=== PATIENT | male | born 1995 | race Caucasian/White ===

== ENCOUNTER 2023-12-08 17:55 | Outpatient (CLI) | payer BC, SELFPAY ==
[2023-12-08 19:11] LABS: Lab Add On Test New Spec Needed
== END 2023-12-08 17:56 | disposition home or self-care (01) ==
PROVIDERS: PCP Family Medicine; Visit Provider Family Medicine
DX: D64.9 Anemia, unspecified (principal); I10 Essential (primary) hypertension; Z13.220 Encounter for screening for lipoid disorders; Z13.29 Encounter for screening for other suspected endocrine disorder
CPT/HCPCS: 80061; 80076; 82043; 82570; 84443

== ENCOUNTER 2024-01-05 16:52 | Outpatient (CLI) | payer BC, SELFPAY | END 2024-01-05 16:53 | disposition home or self-care (01) | PROVIDERS: PCP Family Medicine; Visit Provider Family Medicine | DX: D64.9 Anemia, unspecified (principal); I10 Essential (primary) hypertension; R60.9 Edema, unspecified | CPT/HCPCS: 82306; 82728; 83540 ==

== ENCOUNTER 2024-01-15 13:44 | Outpatient (CLI) | payer BC, SELFPAY ==
--- NOTE | 2024-01-15 | CRLHL7_ITS ---
For Patients: As a result of the Century Cures Act, medical imaging exams and procedure reports are released immediately into your electronic medical record. You may view this report before your referring provider. If you have questions, please contact your health care provider. INDICATION: Bilateral lower extremity swelling TECHNIQUE: Ultrasound venous duplex lower extremity bilateral. Compression venous exam was performed using campos-scale, color Doppler, and spectral Doppler imaging. COMPARISON: None. FINDINGS: Sonographic imaging demonstrates the common femoral, deep femoral, superficial femoral, popliteal, and greater saphenous veins to be fully compressible with normal color Doppler blood flow in both lower extremities. Mild subcutaneous edema within the calves without focal fluid collection. IMPRESSION: Normal bilateral lower extremity venous ultrasound, no sign of deep venous thrombosis. Dictated by Chris Zuniga MD @ 01/15/2024 3:44:32 PM (Electronically Signed)
== END 2024-01-15 13:45 | disposition home or self-care (01) ==
LOC: RAD 13:44
PROVIDERS: PCP Family Medicine; Visit Provider Family Medicine
DX: R60.9 Edema, unspecified (principal); R22.43 Localized swelling, mass and lump, lower limb, bilateral
CPT/HCPCS: 93306; 93970

== ENCOUNTER 2024-02-09 17:23 | Outpatient (CLI) | payer BC, SELFPAY | END 2024-02-09 17:24 | disposition home or self-care (01) | LOC: LKVREF 17:26 | PROVIDERS: PCP Family Medicine; Visit Provider Family Medicine | DX: I89.0 Lymphedema, not elsewhere classified (principal); D64.9 Anemia, unspecified; R60.9 Edema, unspecified; I10 Essential (primary) hypertension | CPT/HCPCS: 86682 ==

== ENCOUNTER 2024-02-17 15:25 | Outpatient (CLI) | payer BC, SELFPAY ==
--- NOTE | 2024-02-17 16:00 | CRLHL7_ITS ---
For Patients: As a result of the Century Cures Act, medical imaging exams and procedure reports are released immediately into your electronic medical record. You may view this report before your referring provider. If you have questions, please contact your health care provider. INDICATION: Lymphedema. TECHNIQUE: CT abdomen and pelvis acquired with 150 cc Omnipaque 370 IV contrast. COMPARISON: None. FINDINGS: Lower chest: Unremarkable. Liver: Unremarkable. Normal in size and attenuation. No suspicious masses. Gallbladder and bile ducts: Unremarkable. No stones or inflammation. No biliary dilatation. Pancreas: Unremarkable. No mass or inflammation. Spleen: Mild splenomegaly (15 centimeters AP dimension). Adrenal glands: Unremarkable. No nodules. Kidneys: Unremarkable. No suspicious masses, stones, or hydronephrosis. GI tract: No bowel obstruction or focal inflammation. Vasculature: Abdominal aorta is normal in caliber. Mesenteric arteries are patent. Lymph nodes: Abdominal retroperitoneal, pelvic and bilateral inguinal lymphadenopathy. A right inguinal lymph node measures 2.1 x 3.7 centimeters (series 2, image 163), a left inguinal lymph node measures 2.0 by 3.4 centimeters (series 2, image 175), bilateral pelvic sidewall lymph nodes measure up to 1.6 centimeters on the right and 1.4 centimeters on the left. Para-aortic lymph nodes measure up to 12 millimeter short axis (series 2, image 75). Peritoneum/Abdominal Wall: No free fluid or free intraperitoneal air. Pelvis: Unremarkable. Bones: No suspicious osseous lesion IMPRESSION: Abdominal retroperitoneal, pelvic and bilateral inguinal lymphadenopathy. Mild splenomegaly. Please note that all CT scans at this facility use dose modulation, iterative reconstruction, and/or weight-based dosing when appropriate to reduce radiation dose to as low as reasonably achievable. Dictated by Rasta Carrasco MD @ 02/18/2024 9:39:40 AM (Electronically Signed)
== END 2024-02-17 15:26 | disposition home or self-care (01) ==
LOC: CT 15:26
PROVIDERS: PCP Family Medicine; Visit Provider Family Medicine
DX: I89.0 Lymphedema, not elsewhere classified (principal); D72.829 Elevated white blood cell count, unspecified; R16.1 Splenomegaly, not elsewhere classified
CPT/HCPCS: 74177; Q9967

== ENCOUNTER 2024-03-01 15:25 | Outpatient (CLI) | payer BC, SELFPAY | END 2024-03-01 15:26 | disposition home or self-care (01) | LOC: NFLDREF 03-02 09:58 | PROVIDERS: PCP Family Medicine; Referring Provider Family Medicine; Visit Provider Internal Medicine Hematology & Oncology | DX: R71.8 Other abnormality of red blood cells (principal); D72.829 Elevated white blood cell count, unspecified; D64.9 Anemia, unspecified; R77.9 Abnormality of plasma protein, unspecified | CPT/HCPCS: 84155; 84165 ==

== ENCOUNTER 2024-03-30 07:58 | Outpatient (CLI) | payer BC, SELFPAY ==
--- NOTE | 2024-03-30 08:15 | CRLHL7_ITS ---
For Patients: As a result of the Century Cures Act, medical imaging exams and procedure reports are released immediately into your electronic medical record. You may view this report before your referring provider. If you have questions, please contact your health care provider. ULTRASOUND-GUIDED LEFT INGUINAL LYMPH NODE BIOPSY CLINICAL HISTORY: Inguinal adenopathy COMPARISON STUDIES: CT 02/17/2024 TECHNIQUE: Real-time ultrasound with image documentation was used for targeting the left inguinal lymph node lesion. Core biopsy specimens were obtained using an automated gun with a 14-gauge biopsy needle. CONSENT and TIME OUT: The procedure, risks, and alternatives were explained to the patient and a consent was signed. [place] Protocol was followed including pre-procedure verification that relevant information/documentation was available, reviewed and properly matched to the patient; consent accurate and complete; and equipment and supplies available. Time Out was conducted just prior to starting procedure to verify the four required elements: patient identity, correct side/site marked (if applicable), procedure, relevant images/results properly labeled and displayed (if applicable). PROCEDURE: The patient was positioned supine on the ultrasound table. The left inguinal region was prepped with ChloraPrep. 8 cc of 1 percent lidocaine used for local anesthesia. Core samples were obtained. The specimens were placed in 10% formalin and sent to the pathology department. Pressure was held on the biopsy site until all bleeding subsided. The skin incision was closed with Steri-Strips. An ice pack was positioned over the biopsy site. Post-biopsy instructions were reviewed with the patient, and a written copy was given to him. LATERALITY: Left inguinal region LESION: Enlarged hypoechoic left inguinal lymph node measuring 2.8 cm SUSPICION FOR MALIGNANCY: Reactive versus lymphoma NUMBER OF SAMPLES: 5 IMPRESSION: Ultrasound-guided left inguinal lymph node biopsy. Dictated by Pastor Hawley MD @ 03/30/2024 12:41:44 PM (Electronically Signed)
== END 2024-03-30 07:59 | disposition home or self-care (01) ==
LOC: US 07:59
PROVIDERS: PCP Family Medicine; Visit Provider Family Medicine
DX: R59.1 Generalized enlarged lymph nodes (principal); D64.9 Anemia, unspecified; D72.829 Elevated white blood cell count, unspecified
CPT/HCPCS: 38505; 76942; 88305; 88341; 88342; 88360; 88365; A4649

== ENCOUNTER 2024-04-15 16:53 | Outpatient (CLI) | payer BC, SELFPAY ==
[2024-04-15 19:43] LABS: Lab Add On Test New Spec Needed
== END 2024-04-15 16:54 | disposition home or self-care (01) ==
PROVIDERS: PCP Family Medicine; Visit Provider Family Medicine
DX: D64.9 Anemia, unspecified (principal); D72.829 Elevated white blood cell count, unspecified; E53.8 Deficiency of other specified B group vitamins; R59.1 Generalized enlarged lymph nodes; R77.9 Abnormality of plasma protein, unspecified
CPT/HCPCS: 80053; 82607; 82728; 83540

== ENCOUNTER 2024-06-14 15:55 | Outpatient (CLI) | payer BC, SELFPAY | END 2024-06-14 15:56 | disposition home or self-care (01) | LOC: CT 15:55 | PROVIDERS: PCP Family Medicine; Visit Provider Internal Medicine Hematology & Oncology | DX: R59.1 Generalized enlarged lymph nodes (principal) | CPT/HCPCS: 71260; 74177; Q9967 ==

== ENCOUNTER 2024-08-02 14:00 | Outpatient (RCR) | payer BC, SELFPAY ==
[2024-02-24 14:42] LABS: Basophils Percent Auto 0.2 % (0.0-3.0); Eosinophils Percent Auto 1.5 % (0.0-7.0); Hematocrit 34.9 % (37.0-53.0); Hemoglobin* 10.3 gm/dL (13.5-17.5); Immature Granulocytes Pct Auto 0.6 %; Immature Reticulocyte Fraction 26.7 % (2.3-13.4); Lymphocytes Percent Auto 9.5 % (20-44); Mean Corpuscular HGB Conc 30 gm/dL (32-36); Mean Corpuscular Hemoglobin 20 pg (26-34); Mean Corpuscular Volume 69 fL (80-100); Monocytes Percent Auto 8.2 % (0.0-11.0); Platelet Count* 524 K/uL (140-440); RDW Coefficient of Variation % 18.9 % (11.5-15.5); Red Blood Count 5.07 m/uL (4.30-5.90); Reticulocyte Hemoglobin Equivi 18.5 pg (29.0-35.0); Reticulocyte Percent 1.3 % (0.5-2.0); Reticulocytes Absolute 0.07 # (0.03-0.08); White Blood Count* 18.38 K/uL (4.50-11.00)
[2024-02-24 14:46] LABS: Albumin* 4.2 g/dL (3.3-5.0)
[2024-02-24 14:47] LABS: Chloride* 94 mmol/L (96-114); Potassium* 3.7 mmol/L (3.6-5.1); Sodium* 134 mmol/L (135-149)
[2024-02-24 14:49] LABS: Anion Gap 8 mEq/L (7-15); Aspartate Amino Transferase* 64 U/L (12-35); Bilirubin Total* 0.4 mg/dL (0.1-1.5); Carbon Dioxide* 32 mmol/L (20-32); Creatinine* 0.9 mg/dL (0.5-1.5); Est. Creatinine Clearance* 136.87; Estimated Glomerular Filt Rate 119 ml/min; Slide Review Reflex No
[2024-02-24 14:50] LABS: Alanine Aminotransferase* 15 U/L (4-50); Alkaline Phosphatase* 85 U/L (40-150); Blood Urea Nitrogen* 11 mg/dL (5-24); Calcium* 9.1 mg/dL (8.4-10.6); Glucose* 97 mg/dL (60-115); Lactate Dehydrogenase* 174 U/L (120-246); Total Protein* 9.4 g/dL (6.0-8.3)
[2024-02-24 15:12] LABS: Iron* 31 ug/dL (49-181)
[2024-02-24 15:22] LABS: Percent Iron Saturation 10 % (20-50); Total Iron Binding Capacity 322 ug/dL (261-462)
[2024-02-24 15:23] LABS: Ferritin* 94.1 ng/mL (17.9-464.0)
[2024-02-24 15:38] LABS: Vitamin B12* 245 pg/mL (243-894)
[2024-02-27 00:18] LABS: Copper, Serum/Plasma 160.2 ug/dL (70.0-140.0)
[2024-02-27 12:37] LABS: Folate, Serum >22.3 ng/mL (>=5.9)
[2024-02-27 22:17] LABS: Albumin 3.24 g/dL (3.75-5.01); Alpha 1 Globulin 0.59 g/dL (0.19-0.46); Alpha 2 Globulin 1.13 g/dL (0.48-1.05); Total Protein, Serum 8.8 g/dL (6.3-8.2)
[2024-03-01 19:37] LABS: QuantBCR-ABL Major p210 Result Not Detected; QuantBCR-ABL Major p210 Source Whole Blood
[2024-03-04 20:06] LABS: JAK2 Qual Mutation by PCR Not Detected; JAK2 Qual, Source Whole Blood
[2024-04-27 10:57] LABS: Basophils Percent Auto 0.2 % (0.0-3.0); Hematocrit 29.7 % (37.0-53.0); Hemoglobin* 8.7 gm/dL (13.5-17.5); Immature Granulocytes Pct Auto 0.6 %; Lymphocytes Percent Auto 6.9 % (20-44); Mean Corpuscular HGB Conc 29 gm/dL (32-36); Mean Corpuscular Hemoglobin 20 pg (26-34); Mean Corpuscular Volume 68 fL (80-100); Monocytes Percent Auto 9.9 % (0.0-11.0); Neutrophils Percent Auto 81.4 % (42.0-72.0); Platelet Count* 527 K/uL (140-440); RDW Coefficient of Variation % 18.9 % (11.5-15.5); Red Blood Count 4.34 m/uL (4.30-5.90); White Blood Count* 20.72 K/uL (4.50-11.00)
[2024-04-27 10:58] LABS: Slide Review Reflex No
[2024-04-27 12:02] LABS: Vitamin B12* 340 pg/mL (243-894)
--- NOTE | 2024-04-29 12:50 | ONC.NURNOTE ---
Ict Business Analyst attempted to contact patient to set him up for his B12 injections. LMOM for him to call back.
--- NOTE | 2024-04-29 14:42 | URNOTE ---
Request received for authorization for Iron Dextran (InFed) (J1750). Prior authorization is not required per BCBS (active plan on [employer]) web site.
[2024-05-11 10:01] VITALS: BP 140/71; PULSE 109; RESP 16; TEMP 36.1; O2SAT 97
[2024-05-11] MEDS: IRON DEXTRAN COMPLEX 25 MG in 0.9 % SODIUM CHLORIDE 100 ml 100 ML 402 MG IVPB (10:20)
[2024-05-11] MEDS: CYANOCOBALAMIN 1,000 MCG/ML inj 1000 MCG IM (10:22)
[2024-05-11] MEDS: 0.9 % SODIUM CHLORIDE 500 ML IV (10:47)
[2024-05-11] MEDS: SODIUM CHLORIDE 0.9 % (FLUSH) 10 ML SYRINGE IVF (10:47)
[2024-05-11 11:10] VITALS: BP 107/71; PULSE 94; RESP 16; TEMP 36.2; O2SAT 99
[2024-05-11] MEDS: IRON DEXTRAN COMPLEX 975 MG in 0.9 % SODIUM CHLORIDE 250 ml 250 ML 269.5 MG IVPB (11:28)
[2024-05-11 12:36] VITALS: BP 116/71; PULSE 105; RESP 16; TEMP 36.8; O2SAT 98
[2024-05-11 13:09] VITALS: BP 123/75; PULSE 94; RESP 16; TEMP 36.8; O2SAT 100
--- NOTE | 2024-05-14 11:35 | ONC.NURNOTE ---
PT called today to inquire about his oral iron supplement. He noted on the patient education for his INFeD infusion that he is to hold oral supplementation. RN stated ok to continue oral supplement as ordered.
[2024-06-08 14:10] VITALS: BP 144/82; PULSE 110; RESP 16; TEMP 36.2; O2SAT 98
[2024-06-08] MEDS: CYANOCOBALAMIN 1,000 MCG/ML inj 1000 MCG IM (14:22)
[2024-06-08 15:27] LABS: Basophils Percent Auto 0.3 % (0.0-3.0); Eosinophils Percent Auto 1.3 % (0.0-7.0); Hematocrit 33.1 % (37.0-53.0); Hemoglobin* 9.7 gm/dL (13.5-17.5); Immature Granulocytes Pct Auto 1.5 %; Immature Reticulocyte Fraction 33.8 % (2.3-13.4); Lymphocytes Percent Auto 14.7 % (20-44); Mean Corpuscular HGB Conc 29 gm/dL (32-36); Mean Corpuscular Hemoglobin 21 pg (26-34); Mean Corpuscular Volume 70 fL (80-100); Monocytes Percent Auto 9.7 % (0.0-11.0); Neutrophils Percent Auto 72.5 % (42.0-72.0); Platelet Count* 604 K/uL (140-440); RDW Coefficient of Variation % 20.9 % (11.5-15.5); Reticulocyte Hemoglobin Equivi 18.7 pg (29.0-35.0); Reticulocyte Percent 1.9 % (0.5-2.0); Reticulocytes Absolute 0.09 # (0.03-0.08); White Blood Count* 19.57 K/uL (4.50-11.00)
[2024-06-08 15:29] LABS: Slide Review Reflex No
--- NOTE | 2024-06-25 13:40 | URNOTE ---
Request received for authorization for Iron Sucrose (Venofer) (J1756). Prior authorization is not required per [employer]BS (active plan on [employer]) web site, confirmed Rep. Scott Ellis Ref#[id number], services are based on medical necessity and guidelines.
[2024-07-05 14:13] VITALS: BP 144/79; PULSE 111; RESP 16; TEMP 36.1; O2SAT 97
[2024-07-05] MEDS: 0.9 % SODIUM CHLORIDE 250 ml IV (14:35)
[2024-07-05] MEDS: IRON SUCROSE COMPLEX 200 MG in 0.9 % SODIUM CHLORIDE 100 ml 100 ML 440 MG IVPB (14:38)
[2024-07-05] MEDS: CYANOCOBALAMIN 1,000 MCG/ML inj 1000 MCG IM (14:38)
[2024-07-05] MEDS: SODIUM CHLORIDE 0.9 % (FLUSH) 10 ML SYRINGE IVF (14:38)
[2024-07-05 14:55] VITALS: BP 126/72; PULSE 95; RESP 18; TEMP 36.3; O2SAT 97
[2024-07-05 15:25] VITALS: BP 113/76; PULSE 94; RESP 18; TEMP 36.4; O2SAT 98
[2024-08-02 14:24] VITALS: BP 131/67; PULSE 122; RESP 22; TEMP 35.8; O2SAT 95
[2024-08-02] MEDS: 0.9 % SODIUM CHLORIDE 250 ml IV (14:49)
[2024-08-02] MEDS: SODIUM CHLORIDE 0.9 % (FLUSH) 10 ML SYRINGE IVF (14:49)
[2024-08-02] MEDS: IRON SUCROSE COMPLEX 200 MG in 0.9 % SODIUM CHLORIDE 100 ml 100 ML 440 MG IVPB (14:50)
[2024-08-02] MEDS: CYANOCOBALAMIN 1,000 MCG/ML inj 1000 MCG IM (14:52)
[2024-08-02 15:40] VITALS: BP 130/81; PULSE 105; RESP 18; O2SAT 97
== END 2024-08-22 23:59 | disposition home or self-care (01) ==
LOC: CCIC 14:00
PROVIDERS: PCP Family Medicine; Referring Provider Family Medicine; Visit Provider Internal Medicine Hematology & Oncology
DX: D64.9 Anemia, unspecified (principal); E53.8 Deficiency of other specified B group vitamins; D72.829 Elevated white blood cell count, unspecified
CPT/HCPCS: 36415; 36592; 80053; 81206; 81270; 82525; 82607; 82728; 82746; 83021; 83540; 83550; 83615; 84165; 84443; 85025; 85045; 88184; 88185; 96365; 96372; 99202; 99204; 99214; G0463; J1750; J1756; J3420; J7030; J7050

== ENCOUNTER 2024-09-20 13:56 | Outpatient (CLI) | payer BC, SELFPAY ==
--- NOTE | 2024-09-20 14:00 | CRLHL7_ITS ---
For Patients: As a result of the Century Cures Act, medical imaging exams and procedure reports are released immediately into your electronic medical record. You may view this report before your referring provider. If you have questions, please contact your health care provider. INDICATION: Worsening of lymphadenopathy. (Sic) No additional clinical history is provided. COMPARISON: 06/14/2024 and 02/17/2024. TECHNIQUE: CT of the chest, abdomen and pelvis with 150 cc of Isovue 370 intravenous contrast. Please note that all CT scans at this facility use dose modulation, iterative reconstruction, and/or weight-based dosing when appropriate to reduce radiation dose to as low as reasonably achievable. FINDINGS: THORAX Visualized Lower Neck: No lower cervical adenopathy. Lungs: No significant pulmonary findings. Pleura: No pleural effusion. No pneumothorax. Mediastinum: Clustered nonenlarged prevascular mediastinal lymph nodes. Current and prior measurements of previously reported mediastinal nodes on the prior chest CT dated 06/14/2024 as follows (measurements are reported in short axis dimension): 10 mm para-aortic node (mediastinal lymph node station 6) on series 2; image 32, previously 12 mm (2; 26). Thoracic aorta and pulmonary trunk are normal in caliber. Heart and pericardium are without significant findings. Trachea and esophagus are normal in appearance. ABDOMEN Liver: Normal contour and attenuation. No significant focal lesion. No intrahepatic biliary ductal dilatation. Patent portal veins. Patent hepatic veins. Gallbladder: Normal size. No pericholecystic inflammatory changes. Normal common duct caliber. Pancreas: Normal contour and attenuation. No peripancreatic inflammatory changes. No significant focal lesion. Normal main duct caliber. Spleen: Enlarged measuring 13.1 cm in craniocaudal length (8; 91) previously 12.5 cm on the baseline study of 02/17/2024 (4; 125). No significant focal lesion. Patent splenic artery and vein. Adrenal Glands: Symmetrical adrenal glands. No significant focal lesion. Kidneys: Normal bilateral renal attenuation. No significant focal lesion. No nephrolith. No dilatation of the intrarenal collecting systems. No ureteral stone. Nondilated ureters. Patent renal arteries and veins. Gastrointestinal tract: Normal caliber, attenuation and wall thickness of the gastrointestinal tract. No inflammatory changes. Normal small bowel mesentery. Normal appendix. Vascular: Abdominal aorta and its major proximal branches including the celiac, superior mesenteric, inferior mesenteric, renal, and bilateral common iliac arteries are patent. Patent superior mesenteric vein. Peritoneum/Retroperitoneum: Redemonstration of clustered and/or enlarged retrocaval, inter aortocaval and para-aortic retroperitoneal lymphadenopathy unchanged compared to the baseline study of 02/17/2024 on visual inspection. Current and prior measurements of previously reported retroperitoneal and pelvic lymph nodes on the baseline abdominopelvic CT dated 02/17/2024 as follows (measurements are reported in short axis dimension): 13 mm para-aortic retroperitoneal lymph node (7; 70), previously 12 mm (2; 75). 16 mm medial subgroup right internal iliac (obturator) node (7; 33), previously 16 mm (2; 139). 14 mm medial subgroup left internal iliac (obturator) node (7; 129), previously 14 mm (2; 137). 24 mm right superficial inguinal node (7; 144), previously 24 mm (2; 163, remeasured in the true orthogonal short axis dimensions of the node). 21 mm left superficial inguinal node (7; 165), previously 20 mm (2; 175). No ascites. PELVIS Redemonstration of clustered enlarged bilateral common iliac, external iliac and bilateral inguinal lymphadenopathy without significant interval change compared to the baseline study of 02/17/2024 on visual inspection. No bladder lesion is identified. No significant incidental findings related to the prostate or seminal vesicles. No significant ascites. SKELETON AND BODY WALL No acute or significant incidental findings. Bilateral symmetrical gynecomastia. IMPRESSION: Unchanged, compared to the baseline study of 02/17/2024, splenomegaly retroperitoneal, bilateral pelvic and inguinal lymphadenopathy consistent with lymphoproliferative disease until proven otherwise (no such history is provided). Clustered nonenlarged mediastinal lymph nodes are nonspecific and unchanged compared to the interval study of 06/14/2024. No other significant interval findings. Incidental findings discussed above. Please note that all CT scans at this facility use dose modulation, iterative reconstruction, and/or weight-based dosing when appropriate to reduce radiation dose to as low as reasonably achievable. Dictated by Garett Islas MD @ 09/23/2024 7:36:39 AM (Electronically Signed)
== END 2024-09-20 13:57 | disposition home or self-care (01) ==
LOC: CT 13:57
PROVIDERS: PCP Family Medicine; Visit Provider Internal Medicine Hematology & Oncology
DX: D64.9 Anemia, unspecified (principal); D72.829 Elevated white blood cell count, unspecified; R59.1 Generalized enlarged lymph nodes; R16.1 Splenomegaly, not elsewhere classified
CPT/HCPCS: 71260; 74177; Q9967

== ENCOUNTER 2024-09-28 10:00 | Outpatient (CLI) | payer BC, SELFPAY | END 2024-09-28 10:01 | disposition home or self-care (01) | LOC: NFLDREF 09-30 18:55 | PROVIDERS: PCP Family Medicine; Referring Provider Family Medicine; Visit Provider Internal Medicine Hematology & Oncology | DX: D64.9 Anemia, unspecified (principal); D72.829 Elevated white blood cell count, unspecified; R59.1 Generalized enlarged lymph nodes; E53.8 Deficiency of other specified B group vitamins | CPT/HCPCS: 82607; 82728; 83540; 83550 ==

== ENCOUNTER 2024-12-27 12:56 | Outpatient (CLI) | payer BC, SELFPAY ==
--- NOTE | 2024-12-27 13:00 | CRLHL7_ITS ---
For Patients: As a result of the Century Cures Act, medical imaging exams and procedure reports are released immediately into your electronic medical record. You may view this report before your referring provider. If you have questions, please contact your health care provider. Indication: Generalized enlarged lymph nodes. suspect worsening LAP Technique: CT Chest/Abd/Pelvis w/ 150cc isovue-370 intravenous contrast Please note that all CT scans at this facility use dose modulation, iterative reconstruction, and/or weight-based dosing when appropriate to reduce radiation dose to as low as reasonably achievable. Comparison: 09/20/2024 Findings: In the chest, there is a stable 2 millimeter nodule within the right lower lobe, . Additional stable nodular density measures 3 millimeters within the right lower lobe, . Stable 2 millimeter nodule left lower lobe, . Also stable 3 millimeter nodule left lower lobe, 53. Numerous 1 cm or less mediastinal lymph nodes again noted. Largest lymph node measures 8 millimeters compared to 10 millimeters on the prior study. No pleural or pericardial effusion. Bilateral gynecomastia is similar. There is no fracture. No infiltrate or edema. No pneumothorax. In the abdomen, there is no intrahepatic mass. The gallbladder is partially distended. No calcified gallstones. No biliary obstruction. Spleen is unchanged. Normal pancreas. Adrenal glands are normal. Normal kidneys. Prominent retroperitoneal lymph nodes are again noted which measure up to 12 millimeters common previously measuring 13 millimeters. In the pelvis, the bladder is normal. No bowel obstruction, free air, free fluid or abscess. Normal appendix. Bilateral pelvic and inguinal adenopathy with the largest lymph node in the right inguinal region measures 3.9 x 2.1 cm, previously measuring 4.1 x 2.4 cm. Posterior discogenic spurring L5-S1. Impression: Slightly decreased adenopathy when compared to the prior study. Splenomegaly is similar. Tiny bilateral pulmonary nodules are unchanged. Please note that all CT scans at this facility use dose modulation, iterative reconstruction, and/or weight-based dosing when appropriate to reduce radiation dose to as low as reasonably achievable. Dictated by Pastor Hawley MD @ 12/27/2024 3:27:53 PM (Electronically Signed)
== END 2024-12-27 12:57 | disposition home or self-care (01) ==
LOC: CT 12:57
PROVIDERS: PCP Family Medicine; Visit Provider Internal Medicine Hematology & Oncology
DX: R59.1 Generalized enlarged lymph nodes (principal); R91.8 Other nonspecific abnormal finding of lung field
CPT/HCPCS: 71260; 74177; Q9967

== ENCOUNTER 2025-02-23 13:00 | Outpatient (RCR) | payer BC, SELFPAY ==
[2024-08-30 14:20] VITALS: BP 165/77; PULSE 106; TEMP 36.8; O2SAT 97
[2024-08-30] MEDS: IRON SUCROSE COMPLEX 200 MG in 0.9 % SODIUM CHLORIDE 100 ml 100 ML 440 MG IVPB (14:28)
[2024-08-30] MEDS: SODIUM CHLORIDE 0.9 % (FLUSH) 10 ML SYRINGE IVF (14:34)
[2024-08-30 14:49] VITALS: BP 130/81; PULSE 95; RESP 18; O2SAT 99
[2024-09-28] MEDS: SODIUM CHLORIDE 0.9 % (FLUSH) 10 ML SYRINGE IVF (14:20)
[2024-09-28] MEDS: IRON SUCROSE COMPLEX 200 MG in 0.9 % SODIUM CHLORIDE 100 ml 100 ML 440 MG IVPB (14:25)
[2024-09-28 15:30] VITALS: BP 131/84; PULSE 79; RESP 20; O2SAT 96
[2024-10-25 12:53] VITALS: BP 132/83; PULSE 115; TEMP 35.9; O2SAT 96
[2024-11-01 12:58] VITALS: BP 147/85; PULSE 111; RESP 14; TEMP 35.7; O2SAT 96
[2024-11-09 13:30] VITALS: BP 133/72; PULSE 122; TEMP 35.8; O2SAT 97
[2024-11-16 13:04] VITALS: BP 136/81; PULSE 111; RESP 16; TEMP 36.1; O2SAT 95
[2024-11-23 13:24] VITALS: BP 136/79; PULSE 115; TEMP 36.1; O2SAT 97
[2024-11-30 10:58] VITALS: BP 151/85; PULSE 113; RESP 21; TEMP 36.8; O2SAT 96
--- NOTE | 2024-11-30 12:59 | ONC.NURNOTE ---
[facility] report has been made. Web Report Number [id number].
[2024-12-07 13:00] VITALS: BP 134/83; PULSE 111; RESP 18; O2SAT 97
[2024-12-14 10:59] VITALS: BP 138/84; PULSE 120; RESP 17; TEMP 36.2; O2SAT 98
[2024-12-22 14:00] VITALS: BP 152/86; PULSE 114; RESP 16; TEMP 36.8; O2SAT 98
[2024-12-27 14:20] LABS: Hematocrit* 34.9 % (37.0-53.0); Hemoglobin* 10.1 gm/dL (13.5-17.5); Immature Granulocytes Pct Auto 0.5 %; Mean Corpuscular HGB Conc 29 gm/dL (32-36); Mean Corpuscular Hemoglobin 21 pg (26-34); Mean Corpuscular Volume 74 fL (80-100); RDW Coefficient of Variation % 18.9 % (11.5-15.5); Red Blood Count* 4.75 m/uL (4.30-5.90); White Blood Count* 12.94 K/uL (4.50-11.00)
[2024-12-27 14:32] LABS: Immature Granulocytes Abs Auto 0.10 K/uL (0.00-0.30); Lymphocytes Absolute Auto 1.70 K/uL (0.90-2.90)
[2024-12-27 14:33] LABS: Slide Review Reflex No
[2024-12-27 14:51] LABS: Iron* 34 ug/dL (49-181)
[2024-12-27 15:01] LABS: Percent Iron Saturation 15 % (20-50); Total Iron Binding Capacity 228 ug/dL (261-462)
[2024-12-27 15:25] LABS: Vitamin B12* 874 pg/mL (243-894)
[2024-12-29 16:59] LABS: Folate, Serum 12.3 ng/mL (>=5.9)
[2025-01-26 12:56] VITALS: BP 126/83; PULSE 104; RESP 16; TEMP 36; O2SAT 96
[2025-02-23 12:56] VITALS: BP 151/78; PULSE 106; RESP 18; TEMP 36.4; O2SAT 97
== END 2025-02-26 23:59 | disposition home or self-care (01) ==
LOC: CCIC 13:00
PROVIDERS: PCP Family Medicine; Referring Provider Family Medicine; Visit Provider Internal Medicine Hematology & Oncology
DX: E53.8 Deficiency of other specified B group vitamins (principal); D64.9 Anemia, unspecified
CPT/HCPCS: 36415; 82607; 82728; 82746; 83540; 83550; 85025; 96365; 96372; 99214; G0463; J1756; J3420; J7050

== ENCOUNTER 2025-03-29 10:56 | Outpatient (CLI) | payer BC, SELFPAY | END 2025-03-29 10:57 | disposition home or self-care (01) | LOC: LKVREF 11:02 | PROVIDERS: PCP Family Medicine; Visit Provider Family Medicine | DX: I83.009 Varicose veins of unspecified lower extremity with ulcer of unspecified site (principal); L97.909 Non-pressure chronic ulcer of unspecified part of unspecified lower leg with unspecified severity | CPT/HCPCS: 87070; 87186 ==

== ENCOUNTER 2025-03-30 09:48 | Outpatient (CLI) | payer BC, SELFPAY ==
--- NOTE | 2025-03-30 10:00 | CRLHL7_ITS ---
For Patients: As a result of the Century Cures Act, medical imaging exams and procedure reports are released immediately into your electronic medical record. You may view this report before your referring provider. If you have questions, please contact your health care provider. Indication: WT LOSS 100#S IN A YEAR. FOLLOWING UP LYMPH NODES Technique: CT Chest/Abd/Pelvis 150CC ISOVUE 370 INTRAVENOUS CONTRAST AND WATER PREP Please note that all CT scans at this facility use dose modulation, iterative reconstruction, and/or weight-based dosing when appropriate to reduce radiation dose to as low as reasonably achievable. Comparison: 12/27/2024 Findings: In the chest,previously noted prevascular lymph node measures 7 millimeters compared to 8 millimeters on the prior exam. Normal axillary lymph nodes. No hilar adenopathy. Visualized thyroid is unremarkable and unchanged. A few scattered tiny pulmonary nodules are again noted bilaterally measuring 2 millimeters or less. No suspicious nodule is present. No infiltrate, edema, effusion or pneumothorax. Bilateral gynecomastia noted. Mild dependent atelectasis. No fracture. In the abdomen, there is no intrahepatic mass. The gallbladder is normal. Spleen is similar. Pancreas normal. Normal adrenal glands. Kidneys within normal limits. Multiple retroperitoneal lymph nodes are again noted which measure up to 1.1 cm in short axis dimension compared to 1.2 cm in short axis dimension on the prior study. In the pelvis, there is increased stool in the rectum. No mechanical bowel obstruction. No inflammatory change. Appendix is normal. Bladder incompletely distended. Bilateral inguinal and pelvic sidewall adenopathy is present, measuring up to 3.7 x 1.8 cm, previously measuring 3.9 x 2.1 cm. Degenerative spurring posteriorly at L5-S1. No fracture. Impression: Slightly decreased mediastinum, retroperitoneal, pelvic sidewall and inguinal adenopathy compared to the prior exam. Also slightly decreased splenomegaly since the prior study. Tiny bilateral pulmonary nodules considered incidental. These are similar. Increased rectal stool consistent with constipation. No bowel obstruction. Please note that all CT scans at this facility use dose modulation, iterative reconstruction, and/or weight-based dosing when appropriate to reduce radiation dose to as low as reasonably achievable. Dictated by Pastor Hawley MD @ 03/30/2025 11:24:49 AM (Electronically Signed)
== END 2025-03-30 09:49 | disposition home or self-care (01) ==
LOC: CT 09:49
PROVIDERS: PCP Family Medicine; Visit Provider Internal Medicine Hematology & Oncology
DX: R63.4 Abnormal weight loss (principal); R91.8 Other nonspecific abnormal finding of lung field; D72.829 Elevated white blood cell count, unspecified
CPT/HCPCS: 71260; 74177; Q9967

== ENCOUNTER 2025-03-30 12:56 | Outpatient (CLI) | payer BC, SELFPAY | END 2025-03-30 12:57 | disposition home or self-care (01) | LOC: WOUND 12:56 | PROVIDERS: PCP Family Medicine; Visit Provider Surgery | DX: I87.313 Chronic venous hypertension (idiopathic) with ulcer of bilateral lower extremity (principal); I89.0 Lymphedema, not elsewhere classified; L97.312 Non-pressure chronic ulcer of right ankle with fat layer exposed; L97.222 Non-pressure chronic ulcer of left calf with fat layer exposed; I10 Essential (primary) hypertension; D50.8 Other iron deficiency anemias; E66.01 Morbid (severe) obesity due to excess calories | CPT/HCPCS: 11042; 11045; G0463 ==

== ENCOUNTER 2025-04-06 14:32 | Outpatient (CLI) | payer BC, SELFPAY | END 2025-04-06 14:33 | disposition home or self-care (01) | LOC: WOUND 14:32 | PROVIDERS: PCP Family Medicine; Visit Provider Surgery | DX: I87.313 Chronic venous hypertension (idiopathic) with ulcer of bilateral lower extremity (principal); I89.0 Lymphedema, not elsewhere classified; L97.222 Non-pressure chronic ulcer of left calf with fat layer exposed; I10 Essential (primary) hypertension; D50.8 Other iron deficiency anemias; E66.01 Morbid (severe) obesity due to excess calories | CPT/HCPCS: 11042; 11045 ==